=== PATIENT | female | born 1960 | race Caucasian/White ===

== ENCOUNTER 2021-11-12 11:22 | Inpatient (IN) ==
[2021-11-12] MEDS ORDERED: 0.9 % Sodium Chloride 500 ML IVC ONE ×3 (12:00→13:30)
[2021-11-12] MEDS ORDERED: Iopamidol - 370 500 ML MLS IVP ONE (12:00)
[2021-11-12 12:24] LABS: Basophils % 0.1 %; Eosinophils # 0.1 K/mcL (0.0-0.6); Eosinophils % 0.7 %; Hematocrit 36.7 % (35.3-44.9); Hemoglobin 12.3 g/dL (11.5-15.4); Immature Granulocytes % 0.7 % (0-4); Lymphocytes # 2.5 K/mcL (0.6-4.6); Lymphocytes % 24.7 %; Mean Corpuscular HGB Conc 33.5 g/dL (31.6-35.5); Mean Corpuscular Hemoglobin 33.5 pg (28.0-33.3); Mean Platelet Volume 9.8 fL (9.4-12.4); Monocytes # 0.9 K/mcL (0.0-1.3); Monocytes % 8.9 %; Neutrophils # 6.5 K/mcL (1.6-8.9); Platelet Count 236 K/mcL (140-400); Red Blood Count 3.67 M/mcL (3.82-4.97); Red Cell Distribution Width 13.7 % (11.5-14.5); Segmented Neutrophils % 64.9 %
[2021-11-12 12:34] LABS: VBG HCO3 27 mEq/L (21-27); VBG PCO2 79 mmHg (41-51); VBG PH 7.14 pH Units (7.32-7.42); VBG PO2 37 mmHg (25-50)
[2021-11-12 12:43] LABS: Prothrombin Time 11.4 Seconds (9.4-12.1)
[2021-11-12 12:46] LABS: Activated Partial Thrombo Time 29.3 Seconds (26.0-36.0)
[2021-11-12 12:47] LABS: Alanine Aminotransferase 10 Units/L (7-52); Albumin 4.3 g/dL (3.5-5.7); Albumin/Globulin Ratio 1.5 (1.1-2.2); Alkaline Phosphatase 66 Units/L (34-104); Aspartate Amino Transferase 21 Units/L (13-39); BUN/Creatinine Ratio 8 (6-26); Bilirubin,Direct 0.1 mg/dL (0.0-0.2); Bilirubin,Indirect 0.2 mg/dL (0.0-1.0); Bilirubin,Total 0.3 mg/dL (0.3-1.0); Blood Urea Nitrogen 22 mg/dL (8-23); Calcium 8.4 mg/dL (8.6-10.3); Carbon Dioxide 26 mEq/L (23-29); Chloride 98 mEq/L (98-107); Globulin 2.9 g/dL (2.4-3.5); Glucose 100 mg/dL (70-105); Magnesium 1.8 mg/dL (1.6-2.6); Osmolality,Calculated 277 (280-300); Potassium 3.8 mEq/L (3.5-5.1); Sodium 132 mEq/L (136-145); Total Protein 7.2 g/dL (6.4-8.9); Troponin I < 0.03 ng/mL (< 0.04)
[2021-11-12] MEDS ORDERED: 0.9 % Sodium Chloride 500 ML ONE (12:54)
[2021-11-12 13:08] LABS: Influenza A PCR Negative (Negative); Influenza B PCR Negative (Negative); Resp. Syncytial Virus PCR Negative (Negative)
[2021-11-12] MEDS ORDERED: cefTRIAXone 1,000 MG in 0.9 % Sodium Chloride 10 ML IVP ONE (13:15)
[2021-11-12 13:23] LABS: SARS-CoV-2 by PCR (In House) Negative (Negative)
[2021-11-12] MEDS ORDERED: methylPREDNISolone 125 MG/2 ML VIAL IVP ONE (14:15)
[2021-11-12 15:01] LABS: VBG HCO3 24 mEq/L (21-27); VBG PCO2 85 mmHg (41-51); VBG PH 7.06 pH Units (7.32-7.42); VBG PO2 43 mmHg (25-50)
[2021-11-12] MEDS ORDERED: Naloxone 0.4 MG/ML INJ IVP PRN (15:12)
[2021-11-12] MEDS ORDERED: Ondansetron 4 MG/2 ML VIAL IVP PRN (15:12)
[2021-11-12] MEDS: Ipratropium/Albuterol Neb 3 ML IH SCH ×3 (17:12→23:07)
[2021-11-12 17:22] LABS: ABG Base Excess -7 mEq/L (-2 to 3); ABG HCO3 22 mEq/L (21-27); ABG Oxygen Saturation 96 % (95-98); ABG PCO2 60 mmHg (35-45); ABG PH 7.18 pH Units (7.32-7.45); ABG PO2 105 mmHg (85-104); ABG TCO2 24 mEq/L (20-26)
[2021-11-12] MEDS: Azithromycin 500 MG in 0.9 % Sodium Chloride 250 ML IVPB SCH (17:58)
[2021-11-12] MEDS: MethylPREDNISolone 40 MG/ML VIAL IVP SCH ×2 (17:58→23:34)
[2021-11-12 18:43] LABS: Adenovirus Not Detected (Not Detect); Bordetella Pertussis Not Detected (Not Detect); Chlamydophila pneumoniae Not Detected (Not Detect); Coronavirus 229E Not Detected (Not Detect); Coronavirus HKU1 Not Detected (Not Detect); Coronavirus NL63 Not Detected (Not Detect); Coronavirus OC43 Not Detected (Not Detect); Human Metapneumovirus Not Detected (Not Detect); Human Rhinovirus/Enterovirus Not Detected (Not Detect); Influenza A Subtype 2009 H1 Not Detected (Not Detect); Influenza B Not Detected (Not Detect); Mycoplasma pneumoniae Not Detected (Not Detect); Parainfluenza Virus 1 Not Detected (Not Detect); Parainfluenza Virus 2 Not Detected (Not Detect); Parainfluenza Virus 3 Not Detected (Not Detect); Parainfluenza Virus 4 Not Detected (Not Detect); Respiratory Syncytial Virus Not Detected (Not Detect); SARS-CoV-2 Not Detected (Not Detect)
[2021-11-12] MEDS ORDERED: 0.9 % Sodium Chloride 1,000 ML IVC ONE (19:04)
[2021-11-12 22:53] LABS: ABG Base Excess -7 mEq/L (-2 to 3); ABG HCO3 21 mEq/L (21-27); ABG Oxygen Saturation 95 % (95-98); ABG PCO2 55 mmHg (35-45); ABG PO2 96 mmHg (85-104); ABG TCO2 23 mEq/L (20-26); Blood Gas Modality AVAPS; Blood Gas VT 400 cc
[2021-11-13] MEDS: Ipratropium/Albuterol Neb 3 ML IH SCH ×6 (04:04→23:27)
[2021-11-13] MEDS ORDERED: 0.9 % Sodium Chloride 500 ML IVC ONE (04:15)
[2021-11-13 06:34] LABS: Basophils % 0.1 %; Hematocrit 32.9 % (35.3-44.9); Immature Granulocytes % 0.6 % (0-4); Lymphocytes # 0.6 K/mcL (0.6-4.6); Lymphocytes % 7.1 %; Mean Corpuscular HGB Conc 32.2 g/dL (31.6-35.5); Mean Corpuscular Hemoglobin 32.4 pg (28.0-33.3); Mean Corpuscular Volume 100.6 fL (83.0-100.0); Mean Platelet Volume 9.8 fL (9.4-12.4); Monocytes # 0.1 K/mcL (0.0-1.3); Monocytes % 1.1 %; Neutrophils # 7.2 K/mcL (1.6-8.9); Platelet Count 215 K/mcL (140-400); Red Blood Count 3.27 M/mcL (3.82-4.97); Red Cell Distribution Width 13.8 % (11.5-14.5); Segmented Neutrophils % 91.1 %; White Blood Count 7.9 K/mcL (4.3-11.1)
[2021-11-13 06:35] LABS: Hemoglobin 10.6 g/dL (11.5-15.4)
[2021-11-13 06:56] LABS: Calcium 7.5 mg/dL (8.6-10.3); Potassium 5.1 mEq/L (3.5-5.1)
[2021-11-13] MEDS: MethylPREDNISolone 40 MG/ML VIAL IVP SCH ×2 (08:29→19:55)
[2021-11-13] MEDS: cefTRIAXone 1,000 MG in 0.9 % Sodium Chloride 10 ML IVP SCH (08:29)
[2021-11-13] MEDS: *HR* Heparin 5,000 UNIT/ML VIAL SQ SCH ×2 (13:59→20:34)
[2021-11-13] MEDS: Azithromycin 500 MG in 0.9 % Sodium Chloride 250 ML IVPB SCH (19:55)
[2021-11-14] MEDS: MethylPREDNISolone 40 MG/ML VIAL IVP SCH ×2 (03:34→13:07)
[2021-11-14 03:37] LABS: Basophils % 0.1 %; Hematocrit 30.8 % (35.3-44.9); Hemoglobin 10.1 g/dL (11.5-15.4); Immature Granulocytes % 0.4 % (0-4); Lymphocytes # 1.6 K/mcL (0.6-4.6); Mean Corpuscular HGB Conc 32.8 g/dL (31.6-35.5); Mean Corpuscular Hemoglobin 32.8 pg (28.0-33.3); Monocytes # 0.8 K/mcL (0.0-1.3); Monocytes % 10.3 %; Neutrophils # 5.3 K/mcL (1.6-8.9); Platelet Count 227 K/mcL (140-400); Red Blood Count 3.08 M/mcL (3.82-4.97); Segmented Neutrophils % 68.2 %; White Blood Count 7.8 K/mcL (4.3-11.1)
[2021-11-14 04:04] LABS: Calcium 8.4 mg/dL (8.6-10.3); Potassium 4.5 mEq/L (3.5-5.1)
[2021-11-14] MEDS: Ipratropium/Albuterol Neb 3 ML IH SCH ×3 (04:24→11:57)
[2021-11-14] MEDS: *HR* Heparin 5,000 UNIT/ML VIAL SQ SCH ×2 (04:49→13:07)
[2021-11-14 07:23] VITALS: TEMP 98.5
[2021-11-14] MEDS: cefTRIAXone 1,000 MG in 0.9 % Sodium Chloride 10 ML IVP SCH (09:28)
[2021-11-14 12:42] VITALS: BP 150/79; PULSE 110
[2021-11-14 13:29] VITALS: O2SAT 95
== END 2021-11-14 14:29 | disposition home or self-care (01) | DRG 140 ==
LOC: 2NNU 11:22 → EMEROOARM 11:22 → SUATTDRO 15:49 → 2NNU 16:40 → 3ANU 11-13 11:15
PROVIDERS: ADMIT Student in an Organized Health Care Education/Training Program; ATTEND Internal Medicine